=== PATIENT | male | born 1995 | race Caucasian/White ===

== ENCOUNTER → 2018-11-03 | Outpatient (CLI) | payer BC | LOC: BMCIMAGING 15:16 | PROVIDERS: ATTEND Internal Medicine | DX: Z87.19 Personal history of other diseases of the digestive system (principal) ==

== ENCOUNTER → 2018-12-26 | Outpatient (CLI) | payer BC | LOC: BMCIMAGING 08:40 | PROVIDERS: ATTEND Emergency Medicine | DX: N50.819 Testicular pain, unspecified (principal) ==